=== PATIENT | female | born 1985 | race Caucasian/White ===

== ENCOUNTER 2020-06-30 14:38 | Inpatient (IN) | payer OTHER, MEDICAID ==
[~2020-06-30] VITALS: Ht 160 cm; Wt 85.8 kg
[~2020-06-30 14:38] MED LIST: NORE1TAB PO
[2020-06-30] MEDS ORDERED: BISACODYL 10 MG SUPP PR PRN (17:00)
[2020-06-30] MEDS ORDERED: DOCUSATE 100 MG CAPSULE PO PRN (17:00)
[2020-06-30] MEDS ORDERED: POLYETHYLENE GLYCOL 17 GM PACKET PO PRN (17:00)
[2020-06-30] MEDS ORDERED: ACETAMINOPHEN 325 MG TABLET PO PRN (17:00)
[2020-06-30] MEDS ORDERED: ONDANSETRON ODT 4 MG PO PRN (17:00)
[2020-06-30 18:54] VITALS: BP 102/67
[2020-06-30 18:56] VITALS: BP 116/73
[2020-07-01 04:18] VITALS: BP 102/67
[2020-07-01 07:00] VITALS: BP 98/65
[2020-07-01 08:29] LABS: BASOPHILS # (AUTO) 0.03 x10^3/uL (0-0.1); BASOPHILS % (AUTO) 1 % (0-1); EOSINOPHILS # (AUTO) 0.18 x10^3/uL (0-0.4); EOSINOPHILS % (AUTO) 3 % (1-7); LYMPHOCYTES # (AUTO) 1.68 x10^3/uL (1-3.4); LYMPHOCYTES % (AUTO) 27 % (22-44); MD NO; MEAN CORPUSCULAR HEMOGLOBIN 32.4 pg (27.0-34.8); MEAN CORPUSCULAR HGB CONC 33.1 g/dL (32.4-35.8); MEAN CORPUSCULAR VOLUME 97.7 fL (80-100); MONOCYTES # (AUTO) 0.48 x10^3/uL (0.2-0.8); MONOCYTES % (AUTO) 8 % (2-9); NEUTROPHILS # (AUTO) 3.85 x10^3/uL (1.8-6.8); NEUTROPHILS % (AUTO) 62 % (42-75); PLATELET COUNT 258 x10^3/uL (130-400); RED BLOOD COUNT 4.52 x10^6/uL (3.82-5.3); RED CELL DISTRIBUTION WIDTH 12.5 % (9.6-15.2)
[2020-07-01 08:41] LABS: ALBUMIN 3.3 g/dL (3.4-5.0); ANION GAP 6 mmol/L (5-15); CALCIUM 8.8 mg/dL (8.5-10.1); CHLORIDE 109 mmol/L (98-107)
[2020-07-01 08:45] LABS: ALANINE AMINOTRANSFERASE 15 U/L (12-78); ALKALINE PHOSPHATASE 72 U/L (45-117); BILIRUBIN,TOTAL 0.5 mg/dL (0.2-1.0); CHOL/HDL RATIO 2.9; CHOLESTEROL, TOTAL 147 mg/dL (140-239); CREATININE 0.84 mg/dL (0.55-1.02); FREE T4 (FREE THYROXINE) 0.92 ng/dL (0.76-1.46); HDL CHOL % 35 % (28-40); HDL CHOLESTEROL (DIRECT) 51 mg/dL (40-60); LDL CHOLESTEROL,CALCULATED 79 mg/dL (54-169); LDL/HDL RATIO 1.5 (0.5-3.0); TOTAL PROTEIN 6.8 g/dL (6.4-8.2); TRIGLYCERIDES 86 mg/dL (50-200); VLDL CHOLESTEROL 17 mg/dL (0-25)
[2020-07-01] MEDS: IBUPROFEN 200 MG TABLET PO PRN ×2 (10:02→19:36)
[2020-07-01 13:18] LABS: MICROSCOPIC NOT IND
[2020-07-01] MEDS: SERTRALINE 50MG TABLET PO SCH (13:21)
[2020-07-01 13:29] LABS: AMPHETAMINE SCREEN, URINE Positive (Negative); BARBITURATE SCREEN, URINE Negative (Negative); BENZODIAZEPINE SCREEN, URINE Negative (Negative); CANNABINOID SCREEN, URINE Positive (Negative); COCAINE SCREEN, URINE Negative (Negative); METHADONE SCREEN, URINE Negative (Negative); OPIATE SCREEN, URINE Negative (Negative)
[2020-07-01 20:04] VITALS: BP 98/68
[2020-07-01] MEDS: PRAZOSIN 1 MG CAPSULE PO SCH (20:38)
[2020-07-01] MEDS: QUETIAPINE 25MG TABLET PO SCH (20:38)
[2020-07-02 07:50] VITALS: BP 91/57
[2020-07-02] MEDS: SERTRALINE 50MG TABLET PO SCH (08:12)
[2020-07-02] MEDS ORDERED: SUMATRIPTAN 50 MG TABLET PO ONE (13:30)
[2020-07-02 19:34] VITALS: BP 104/66
[2020-07-02] MEDS: IBUPROFEN 200 MG TABLET PO PRN (20:06)
[2020-07-02] MEDS: QUETIAPINE 25MG TABLET PO SCH (20:07)
[2020-07-02] MEDS: PRAZOSIN 1 MG CAPSULE PO SCH (20:07)
[2020-07-03 07:48] VITALS: BP 113/75
[2020-07-03] MEDS: SERTRALINE 50MG TABLET PO SCH (10:52)
[2020-07-03] MEDS ORDERED: SUMATRIPTAN 25 MG TABLET PO PRN (12:00)
[2020-07-03 19:42] VITALS: BP 111/67
[2020-07-03] MEDS: PRAZOSIN 1 MG CAPSULE PO SCH (20:17)
[2020-07-03] MEDS: QUETIAPINE 25MG TABLET PO SCH (20:17)
[2020-07-04 07:41] VITALS: BP 96/63
[2020-07-04] MEDS: SERTRALINE 50MG TABLET PO SCH (08:28)
[2020-07-04] MEDS: IBUPROFEN 200 MG TABLET PO PRN (08:28)
[2020-07-04] MEDS: TOPIRAMATE 25 MG TABLET PO SCH ×2 (13:55→20:20)
[2020-07-04 19:14] VITALS: BP 94/59
[2020-07-04] MEDS: PRAZOSIN 1 MG CAPSULE PO SCH (20:18)
[2020-07-04] MEDS: QUETIAPINE 25MG TABLET PO SCH (20:19)
[2020-07-05 07:22] VITALS: BP 101/64
[2020-07-05] MEDS: SERTRALINE 50MG TABLET PO SCH (09:03)
[2020-07-05] MEDS: TOPIRAMATE 25 MG TABLET PO SCH ×2 (09:03→20:03)
[2020-07-05] MEDS ORDERED: PRAZ1CAP2 PO (13:54)
[2020-07-05] MEDS ORDERED: SERT50TA28 PO (13:54)
[2020-07-05] MEDS ORDERED: QUET25TA7 PO (13:54)
[2020-07-05] MEDS ORDERED: TOPI25TA32 PO (13:54)
[2020-07-05 19:09] VITALS: BP 90/40
[2020-07-05] MEDS: PRAZOSIN 1 MG CAPSULE PO SCH (20:02)
[2020-07-05] MEDS: QUETIAPINE 25MG TABLET PO SCH (20:03)
[2020-07-06 07:31] VITALS: BP 98/62
[2020-07-06] MEDS: TOPIRAMATE 25 MG TABLET PO SCH (08:20)
[2020-07-06] MEDS: SERTRALINE 50MG TABLET PO SCH (08:20)
== END 2020-07-06 09:21 | disposition home or self-care (01) | DRG 885 ==
LOC: 3E 16:36
PROVIDERS: ADMIT Psychiatry & Neurology Psychosomatic Medicine; ATTEND Psychiatry & Neurology Psychosomatic Medicine
DX: F33.2 Major depressive disorder, recurrent severe without psychotic features (principal); F15.21 Other stimulant dependence, in remission; F41.1 Generalized anxiety disorder; G47.00 Insomnia, unspecified; G89.29 Other chronic pain; Z79.890 Hormone replacement therapy; Z79.899 Other long term (current) drug therapy; Z91.5 Personal history of self-harm; Z81.8 Family history of other mental and behavioral disorders; Z82.0 Family history of epilepsy and other diseases of the nervous system; Z83.49 Family history of other endocrine, nutritional and metabolic diseases
CPT/HCPCS: 36415; 71045; 80053; 80061; 80307; 81003; 82607; 84439; 84443; 84703; 85025; 93005; Q0162